=== PATIENT | male | born 1935 | race Caucasian/White ===

== ENCOUNTER → 2020-06-09 10:22 | Outpatient (CLI) | payer MEDICARE, OTHER, SELFPAY ==
--- NOTE | 2020-06-09 | DI.CT.S_ITS ---
PROCEDURE: CT ABDOMEN PELVIS WO/W CON INDICATIONS: GROSS HEMATURIA TECHNIQUE: Optional 5 mm thick noncontrast images acquired from the diaphragm to the symphysis pubis. After the administration of intravenous contrast, 5 mm thick images acquired from the diaphragm to the symphysis pubis after a 10-minute delay. 2 mm thick coronal and sagittal reformats were then performed of the kidneys and ureters. For radiation dose reduction, the following was used: automated exposure control, adjustment of mA and/or kV according to patient size. COMPARISON: Outside Film, CT, CT ABDOMEN WITH/WITHOUT CONTRAST, 05/26/2020, 12:15. Outside Film, US, US RENAL COMPLETE, 04/20/2019, 13:28. FINDINGS: Image quality: Excellent. Lung bases: Lung bases are clear. Heart size is normal. Urinary system: Both kidneys are normal in size, without hydronephrosis on pre-contrast images. There is a 6 x 12 mm calculus within a calyx of the left mid kidney adjacent to an upper pole renal cortical cyst. This has an internal radiodensity of 1016 Hounsfield units. No perinephric fat stranding, but there is a contour abnormality on noncontrast imaging at the right mid kidney projecting laterally, having overall dimensions of up to 5.3 cm AP, 7.0 cm transverse and approximately 7.2 cm craniocaudad. This extends from the middle 3rd of the renal cortex into the inferior 3rd, but on contrast-enhanced scanning is not associated with renal vein invasion. 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 Additionally, at the left kidney there is a lower 3rd renal cortical hypodensity measuring up to 1.2 cm, best seen centered on series 3, image 38. This could be a 2nd renal cortical neoplasm but is seen as a discrete entity only on the arterial phase of contrast enhancement There is normal bilateral renal enhancement. Renal calyces appear normal in morphology when filled with contrast. Opacified portions of both ureters demonstrate normal caliber. Bladder wall thickness is normal. No calcified bladder stones. Other solid organs: Liver is normal in size and enhancement. Gallbladder appears normal . Biliary system is non dilated. Pancreas enhances normally. Spleen is normal in size and enhancement. No adrenal nodules. Peritoneum and bowel: Bowel loops demonstrate normal wall thickness and caliber. No free fluid or air. Note is made of a proximal transverse duodenal diverticulum containing an air-fluid level but without associated enhancement measuring almost 3 cm in maximal axial dimension. Nodes and vessels: No retroperitoneal or mesenteric adenopathy by size criteria. Aorta and inferior vena cava are normal in size. Abdominal wall: No ventral hernias. Pelvis: No pathologic free pelvic fluid. No inguinal hernias or adenopathy. Bones: No suspicious bony lesions. No vertebral body compression fractures. IMPRESSION: Large malignant-appearing mass lesion involving the right kidney without evidence of adjacent adenopathy or direct invasion into the renal vein or IVC. The mass measures up to 5.3 x 7.0 x 7.2 cm, and is associated with a small focus of heterogeneous enhancement at the left renal cortex seen on arterial phase of contrast enhancement which conceivably could represent an additional focus of contralateral neoplasm. Follow-up attention to this area of the left kidney is recommended. Incidental finding of a duodenal diverticulum without internal or adjacent inflammation. No specific follow-up is recommended. 6 x 12 mm dense calcification within the nondistended collecting system of the left kidney. No urothelial malignancy suspected. No metastatic disease found. Dictated by: Adarsh Pastrana M.D. on 06/09/2020 at 13:12 Approved by: Adarsh Pastrana M.D. on 06/09/2020 at 13:26
== END ==
PROVIDERS: Referring Provider Urology; Visit Provider Urology
DX: R31.0 Gross hematuria (principal); N28.9 Disorder of kidney and ureter, unspecified; N20.0 Calculus of kidney; N28.1 Cyst of kidney, acquired; K57.10 Diverticulosis of small intestine without perforation or abscess without bleeding
CPT/HCPCS: 74178; Q9967

== ENCOUNTER 2024-09-03 04:10 | Emergency (ER) | payer MEDICARE, OTHER, SELFPAY ==
[2024-09-03] VITALS (20 sets, daily range): BP systolic 129–183; BP diastolic 68–92; PULSE 64–69; RESP 18–29; TEMP 36.2; O2SAT 93–96; BMI 29.8
--- NOTE | 2024-09-03 04:21 | EKG_ITS ---
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
--- NOTE | 2024-09-03 04:23 | ED_ITS ---
HPI - Chest Pain <Sharron Larry MD - Last Filed: 09/06/24 22:00> General Chief Complaint: Chest Pain Stated Complaint: Chest pain Time Seen by Provider: 09/03/24 04:10 History of Present Illness HPI narrative: 88-year-old male with history of metastatic renal cell carcinoma (not currently on chemo or radiation), right nephrectomy, pacemaker on warfarin therapy presents by EMS from home for left-sided chest pain. Patient states that he woke up in the middle of the night with a sharp pain in the left side of his chest that radiated downwards. Worse with movement. EMS administered aspirin and 3 nitroglycerin as well as 3 of morphine EN route with improvement in chest pain. Patient underwent PET-CT scan earlier this month at [facility] that showed progression of metastatic disease and small left pleural effusion. On arrival to the emergency department patient states that his pain is only present when he moves or touches his left lower chest wall. Related Data Previous Rx's Medication Instructions Recorded oxycodone 5 mg tablet 5 mg PO Q6H PRN pain #14 tabs 09/03/24 Allergies Allergy/AdvReac Type Severity Reaction Status Date / Time cephalexin Allergy Verified 09/03/24 04:28 Exam <Sharron Larry MD - Last Filed: 09/06/24 22:00> Initial Vital Signs Initial Vital Signs: Vital Signs Pulse Rate 67 09/03/24 04:20 Respiratory Rate 18 09/03/24 04:20 Blood Pressure 154/68 H 09/03/24 04:20 Pulse Oximetry 93 09/03/24 04:20 Oxygen Delivery Method Room Air 09/03/24 04:20 Const: Awake, alert, frail, appears chronically unwell Cardiac: regular rate, regular rhythm RESP: unlabored, decreased breath sounds left lower lung GI: Soft, left upper quadrant/left lower axillary pain to palpation, no rebound or guarding Skin: Warm, Dry, intact, no rashes Neuro: AO x3, CN II-XII grossly intact, moves all extremities <Sharron Oconnell DO - Last Filed: 09/03/24 10:40> Initial Vital Signs Initial Vital Signs: Vital Signs Pulse Rate 67 09/03/24 04:20 Respiratory Rate 18 09/03/24 04:20 Blood Pressure 154/68 H 09/03/24 04:20 Pulse Oximetry 93 09/03/24 04:20 Oxygen Delivery Method Room Air 09/03/24 04:20 Course <Sharron Larry MD - Last Filed: 09/06/24 22:00> Orders Ordered: Discontinued Medications Bacitracin (Bacitracin Oint 0.9 Gm Pckt) 1 applic TOP NOW ONE Stop: 09/03/24 09:10 Last Admin: 09/03/24 09:13 Dose: 1 applic Documented By: WARREN Vital Signs Vital signs: Vital Signs - 8 hr 09/03/24 04:20 09/03/24 04:27 09/03/24 04:40 Temperature 97.2 F L Pulse Rate 67 65 Respiratory Rate 18 19 Blood Pressure 154/68 H Pulse Oximetry 93 94 Oxygen Delivery Method Room Air 09/03/24 05:27 09/03/24 05:29 09/03/24 05:29 Temperature Pulse Rate 68 64 Respiratory Rate 21 Blood Pressure 183/90 H Pulse Oximetry 96 Oxygen Delivery Method 09/03/24 05:30 09/03/24 06:00 09/03/24 06:01 Temperature Pulse Rate 65 64 64 Respiratory Rate 29 H 24 19 Blood Pressure Pulse Oximetry 96 96 95 Oxygen Delivery Method 09/03/24 06:01 09/03/24 06:30 09/03/24 06:33 Temperature Pulse Rate 66 64 Respiratory Rate 27 H 23 Blood Pressure 149/79 H Pulse Oximetry 95 Oxygen Delivery Method 09/03/24 06:33 09/03/24 07:00 09/03/24 07:01 Temperature Pulse Rate 65 66 Respiratory Rate 22 24 Blood Pressure 179/92 H Pulse Oximetry 93 93 Oxygen Delivery Method 09/03/24 07:01 09/03/24 07:30 09/03/24 07:31 Temperature Pulse Rate 64 64 Respiratory Rate 18 21 Blood Pressure 150/72 H Pulse Oximetry 95 95 Oxygen Delivery Method Room Air 09/03/24 07:31 09/03/24 08:25 09/03/24 08:30 Temperature Pulse Rate 65 Respiratory Rate 21 Blood Pressure 149/82 H 147/73 H 157/77 H Pulse Oximetry 95 Oxygen Delivery Method 09/03/24 08:30 09/03/24 08:47 09/03/24 08:47 Temperature Pulse Rate 64 69 Respiratory Rate 21 Blood Pressure 129/79 Pulse Oximetry 95 Oxygen Delivery Method 09/03/24 09:05 09/03/24 09:25 09/03/24 09:26 Temperature Pulse Rate 69 68 Respiratory Rate Blood Pressure 138/75 Pulse Oximetry 96 94 Oxygen Delivery Method Room Air Room Air <Sharron Oconnell, - Last Filed: 09/03/24 10:40> Orders Ordered: Discontinued Medications Bacitracin (Bacitracin Oint 0.9 Gm Pckt) 1 applic TOP NOW ONE Stop: 09/03/24 09:10 Last Admin: 09/03/24 09:13 Dose: 1 applic Documented By: WARREN Vital Signs Vital signs: Vital Signs - 8 hr 09/03/24 04:20 09/03/24 04:27 09/03/24 04:40 Temperature 97.2 F L Pulse Rate 67 65 Respiratory Rate 18 19 Blood Pressure 154/68 H Pulse Oximetry 93 94 Oxygen Delivery Method Room Air 09/03/24 05:27 09/03/24 05:29 09/03/24 05:29 Temperature Pulse Rate 68 64 Respiratory Rate 21 Blood Pressure 183/90 H Pulse Oximetry 96 Oxygen Delivery Method 09/03/24 05:30 09/03/24 06:00 09/03/24 06:01 Temperature Pulse Rate 65 64 64 Respiratory Rate 29 H 24 19 Blood Pressure Pulse Oximetry 96 96 95 Oxygen Delivery Method 09/03/24 06:01 09/03/24 06:30 09/03/24 06:33 Temperature Pulse Rate 66 64 Respiratory Rate 27 H 23 Blood Pressure 149/79 H Pulse Oximetry 95 Oxygen Delivery Method 09/03/24 06:33 09/03/24 07:00 09/03/24 07:01 Temperature Pulse Rate 65 66 Respiratory Rate 22 24 Blood Pressure 179/92 H Pulse Oximetry 93 93 Oxygen Delivery Method 09/03/24 07:01 09/03/24 07:30 09/03/24 07:31 Temperature Pulse Rate 64 64 Respiratory Rate 18 21 Blood Pressure 150/72 H Pulse Oximetry 95 95 Oxygen Delivery Method Room Air 09/03/24 07:31 09/03/24 08:25 09/03/24 08:30 Temperature Pulse Rate 65 Respiratory Rate 21 Blood Pressure 149/82 H 147/73 H 157/77 H Pulse Oximetry 95 Oxygen Delivery Method 09/03/24 08:30 09/03/24 08:47 09/03/24 08:47 Temperature Pulse Rate 64 69 Respiratory Rate 21 Blood Pressure 129/79 Pulse Oximetry 95 Oxygen Delivery Method 09/03/24 09:05 09/03/24 09:25 09/03/24 09:26 Temperature Pulse Rate 69 68 Respiratory Rate Blood Pressure 138/75 Pulse Oximetry 96 94 Oxygen Delivery Method Room Air Room Air MDM - Chest Pain <Sharron Larry MD - Last Filed: 09/06/24 22:00> Differential Diagnosis Differential diagnosis: Likely fracture of rib, chest pain and other (metastatic disease) Lab Data 09/03/24 04:15 09/03/24 04:15 Labs: Lab Results 09/03/24 Range/Units 04:15 WBC 5.8 (4.5-11.0) X10^3/uL RBC 4.45 L (4.5-5.9) X10^6/uL Hgb 12.9 L (13.5-17.5) g/dL Hct 40.0 L (41-53) % MCV 89.9 (80-100) fL MCH 29.0 (26-34) PG MCHC 32.3 (30-36) % RDW 17.6 H (11.6-14.8) % Plt Count 141 L (150-400) X10^3/uL Neut % (Auto) 70.5 (50-75) % Lymph % (Auto) 14.1 L (25-40) % [place] % (Auto) 12.2 (3-14) % Eos % (Auto) 1.9 L (2-4) % Baso % (Auto) 1.3 (0-2) % Neut # (Auto) 4100 (5747-3052) /uL Lymph # (Auto) 800 L (1703-7603) /uL [place] # (Auto) 700 (0-900) /uL Eos # (Auto) 100 (0-450) /uL Baso # (Auto) 100 (0-100) /uL PT 25.0 H (9.4-12.5) SECONDS INR 2.3 H (0.9-1.3) Sodium 139 (137-145) mmol/L Potassium 4.0 (3.4-5.1) mmol/L Chloride 107 (98-107) mmol/L Carbon Dioxide 27 (22-32) mmol/L BUN 43 H (9-20) mg/dL Creatinine 2.64 H (0.66-1.25) mg/dL Estimated GFR 23 L (>60) mL/min BUN/Creatinine Ratio 16.3 (6-22) Glucose 136 H (80-110) mg/dL Calcium 8.7 (8.4-10.2) mg/dL Total Bilirubin 0.7 (0.2-1.3) mg/dL AST 39 (17-59) IU/L ALT 19 (<50) IU/L Alkaline Phosphatase 90 (38-126) U/L Total Creatine Kinase 95 (55-170) U/L Troponin I < 0.012 (0.01-0.034) ng/mL Total Protein 6.3 (6.3-8.2) g/dL Albumin 3.6 (3.5-5.0) g/dL Globulin 2.7 (1.7-4.1) g/dL Albumin/Globulin Ratio 1.3 (1.0-2.8) Imaging Data CT scan - chest: Radiologist's Impression: Preliminary read: Bilateral pulmonary nodules/metastases, moderate left pleural effusion a Ve[place] attenuation CT scan - abdomen/pelvis: Radiologist's Impression: Preliminary read: Right nephrectomy, nephrolithiasis unless without evidence of obstructive uropathy ECG Data Interpretation: Ventricular paced rhythm MDM Narrative Medical decision making narrative: Patient presenting for left-sided chest pain. On exam patient's pain is very reproducible, isolated to the left lower part of the chest wall and worsened with movement or palpation. With history of metastatic renal cell carcinoma there may be possible metastatic disease contributing to his symptoms. Labs, imaging to be obtained. Laboratory work shows WBC count 5.8, hemoglobin 12.9, platelet count 141, INR 2.3, sodium 139, potassium 4.0, creatinine 2.64, GFR 23, normal liver enzymes. Troponin undetectable. No previous priors in our system for comparison. CT shows left-sided pleural effusion of deferring at attenuation. CT abdomen shows no acute findings. Case discussed with patient's oncologist Dr. Moore, who requested a diagnostic tap of patient's pleural effusion if able, otherwise patient can follow with him in the clinic. Attempted ultrasound guided pleurocentesis, however only a small amount of blood was drawn in the tube. Attempt aborted and post-procedure CXR ordered for assessment. Plan to monitor for changes Care of patient signed to Dr. Oconnell at 0700. 09/03/2024 Dr. Oconnell: Patient signed out to myself by Dr. Larry. Patient seen and evaluated by myself labs were reviewed, CT imaging was reviewed as well as postprocedure chest x-ray with Laron. Waiting formal read for chest x-ray we will plan to monitor for several hours to evaluate for any postprocedure complications. On exam patient has good breath sounds bilaterally, reviewed patient's back he is tender on examination to the chest wall, there has no hematomas or bruising appreciated. No subcutaneous emphysema. Formal read for post chest x-ray shows no pneumothorax, persistent pulmonary nodules left lower lobe mild cardiomegaly, no passes venous congestion patient's rotated venous portal tip atrial caval junction dual-chamber pacemaker. Has what appears to be improvement of left pleural effusion. Discussed findings with patient including what appears to be metastatic changes to the bone, pleural effusion which are likely the source of his pain. Patient was already aware these from our discussion. He currently has pain, no shortness of breath. States he has a little bit lightheaded but is also very hungry. Did discuss options for pain management. He was following regularly with Oncology. 0856: Patient ambulated in the department to the bathroom and back without issue. He states feels a little bit dizzy but otherwise feels well. No increased shortness of breath. Formal report from [facility] is no pneumothorax on chest x-ray has not had any major changes to his vital signs and felt appropriate for discharge home with return precautions. Reviewed all of patient's findings. Discussed should follow up with his oncologist. Also as patient has relayed that we were unable to obtain fluid for studies. We will give prescription for pain medication he has had oxycodone in the past for hernia repair and states he tolerated well. <Sharron Oconnell, - Last Filed: 09/03/24 10:40> Lab Data Labs: Lab Results 09/03/24 Range/Units 04:15 WBC 5.8 (4.5-11.0) X10^3/uL RBC 4.45 L (4.5-5.9) X10^6/uL Hgb 12.9 L (13.5-17.5) g/dL Hct 40.0 L (41-53) % MCV 89.9 (80-100) fL MCH 29.0 (26-34) PG MCHC 32.3 (30-36) % RDW 17.6 H (11.6-14.8) % Plt Count 141 L (150-400) X10^3/uL Neut % (Auto) 70.5 (50-75) % Lymph % (Auto) 14.1 L (25-40) % [place] % (Auto) 12.2 (3-14) % Eos % (Auto) 1.9 L (2-4) % Baso % (Auto) 1.3 (0-2) % Neut # (Auto) 4100 (8756-6710) /uL Lymph # (Auto) 800 L (2828-4410) /uL [place] # (Auto) 700 (0-900) /uL Eos # (Auto) 100 (0-450) /uL Baso # (Auto) 100 (0-100) /uL PT 25.0 H (9.4-12.5) SECONDS INR 2.3 H (0.9-1.3) Sodium 139 (137-145) mmol/L Potassium 4.0 (3.4-5.1) mmol/L Chloride 107 (98-107) mmol/L Carbon Dioxide 27 (22-32) mmol/L BUN 43 H (9-20) mg/dL Creatinine 2.64 H (0.66-1.25) mg/dL Estimated GFR 23 L (>60) mL/min BUN/Creatinine Ratio 16.3 (6-22) Glucose 136 H (80-110) mg/dL Calcium 8.7 (8.4-10.2) mg/dL Total Bilirubin 0.7 (0.2-1.3) mg/dL AST 39 (17-59) IU/L ALT 19 (<50) IU/L Alkaline Phosphatase 90 (38-126) U/L Total Creatine Kinase 95 (55-170) U/L Troponin I < 0.012 (0.01-0.034) ng/mL Total Protein 6.3 (6.3-8.2) g/dL Albumin 3.6 (3.5-5.0) g/dL Globulin 2.7 (1.7-4.1) g/dL Albumin/Globulin Ratio 1.3 (1.0-2.8) MDM Narrative Medical decision making narrative: Patient presenting for left-sided chest pain. On exam patient's pain is very reproducible, isolated to the left lower part of the chest wall and worsened with movement or palpation. With history of metastatic renal cell carcinoma there may be possible metastatic disease contributing to his symptoms. Labs, imaging to be obtained. Laboratory work shows WBC count 5.8, hemoglobin 12.9, platelet count 141, INR 2.3, sodium 139, potassium 4.0, creatinine 2.64, GFR 23, normal liver enzymes. Troponin undetectable. No previous priors in our system for comparison. CT shows left-sided pleural effusion of deferring at attenuation. CT abdomen shows no acute findings. Case discussed with patient's oncologist Dr. Moore, who requested a diagnostic tap of patient's pleural effusion if able, otherwise patient can follow with him in the clinic. Attempted ultrasound guided pleurocentesis, however only a small amount of blood was drawn in the tube. Attempt aborted and post-procedure CXR ordered for assessment. Care of patient signed to Dr. Oconnell at 0700. 09/03/2024 Dr. Oconnell: Patient signed out to myself by Dr. Larry. Patient seen and evaluated by myself labs were reviewed, CT imaging was reviewed as well as postprocedure chest x-ray with Laron. Waiting formal read for chest x-ray we will plan to monitor for several hours to evaluate for any postprocedure complications. On exam patient has good breath sounds bilaterally, reviewed patient's back he is tender on examination to the chest wall, there has no hematomas or bruising appreciated. No subcutaneous emphysema. Formal read for post chest x-ray shows no pneumothorax, persistent pulmonary nodules left lower lobe mild cardiomegaly, no passes venous congestion patient's rotated venous portal tip atrial caval junction dual-chamber pacemaker. Has what appears to be improvement of left pleural effusion. Discussed findings with patient including what appears to be metastatic changes to the bone, pleural effusion which are likely the source of his pain. Patient was already aware these from our discussion. He currently has pain, no shortness of breath. States he has a little bit lightheaded but is also very hungry. Did discuss options for pain management. He was following regularly with Oncology. 0856: Patient ambulated in the department to the bathroom and back without issue. He states feels a little bit dizzy but otherwise feels well. No increased shortness of breath. Formal report from [facility] is no pneumothorax on chest x-ray has not had any major changes to his vital signs and felt appropriate for discharge home with return precautions. Reviewed all of patient's findings. Discussed should follow up with his oncologist. Also as patient has relayed that we were unable to obtain fluid for studies. We will give prescription for pain medication he has had oxycodone in the past for hernia repair and states he tolerated well. Discharge Plan Departure Patient Disposition: Home Clinical Impression: Chest pain, Pleural effusion on left, Cancer, metastatic to lung Activity Restrictions/Additional Instructions: Your imaging today did show a pleural effusion or some fluid around the lung as well as a small pericardial effusion and metastatic lesions to the lung and bone which is likely the source of your pain in the left side of your chest. You did have an attempted thoracentesis, your repeat chest x-ray shows no pneumothorax but please return if you have increasing shortness of breath or difficulty with breathing. A prescription for pain medication is included. You can take acetaminophen up to a 1000 mg every 6 hours for pain if in adequate you can take oxycodone 1-2 tablets with this every 6 hours. This medication can make you sleepy do not drive, perform hazardous activities or make any major decisions while taking it. This medication will make you constipated please take a stool softener such as Colace once to twice daily until stools are soft and regular. Prescription sent to [facility] in [place]. If you develop increased shortness of breath, increasing pain, lightheadedness or passing out, new swelling of your extremities, persistent vomiting, bruising or other new or concerning changes please return to the emergency department. Prescriptions: New oxycodone 5 mg tablet 5 mg PO Q6H PRN (Reason: pain) Qty: 14 0RF Stand Alone Forms: Patient Portal/API/Survey
[2024-09-03 04:28] LABS: Add Manual Diff / Slide Review NO; Basophils Absolute Auto 100 /uL (0-100); Basophils Percent Auto 1.3 % (0-2); Eosinophils Absolute Auto 100 /uL (0-450); Eosinophils Percent Auto 1.9 % (2-4); Hemoglobin 12.9 g/dL (13.5-17.5); Lymphocytes Absolute Auto 800 /uL (1100-4500); Lymphocytes Percent Auto 14.1 % (25-40); Mean Corpuscular HGB Conc 32.3 % (30-36); Mean Corpuscular Volume 89.9 fL (80-100); Monocytes Absolute Auto 700 /uL (0-900); Monocytes Percent Auto 12.2 % (3-14); Neutrophils Absolute Auto 4100 /uL (1500-7000); Neutrophils Percent Auto 70.5 % (50-75); Platelet Count 141 X10^3/uL (150-400); Red Blood Cell Count 4.45 X10^6/uL (4.5-5.9); Red Cell Distribution Width 17.6 % (11.6-14.8); White Blood Cell Count 5.8 X10^3/uL (4.5-11.0)
[2024-09-03 04:36] LABS: INR 2.3 (0.9-1.3)
[2024-09-03 04:39] LABS: Alanine Aminotransferase 19 IU/L (<50); Albumin 3.6 g/dL (3.5-5.0); Albumin Globulin Ratio 1.3 (1.0-2.8); Alkaline Phosphatase 90 U/L (38-126); Aspartate Aminotransferase 39 IU/L (17-59); BUN Creatinine Ratio 16.3 (6-22); Bilirubin Total 0.7 mg/dL (0.2-1.3); Blood Urea Nitrogen 43 mg/dL (9-20); Calcium 8.7 mg/dL (8.4-10.2); Carbon Dioxide 27 mmol/L (22-32); Chloride 107 mmol/L (98-107); Creatine Kinase 95 U/L (55-170); Estimated Glomerular Filt Rate 23 mL/min (>60); Globulin 2.7 g/dL (1.7-4.1); Glucose 136 mg/dL (80-110); HEMOLYSIS < 15 (0-50); Sodium 139 mmol/L (137-145); Total Protein 6.3 g/dL (6.3-8.2)
[2024-09-03 04:51] LABS: Troponin I < 0.012 ng/mL (0.01-0.034)
--- NOTE | 2024-09-03 04:54 | DI.CT.S_ITS ---
PROCEDURE: CT ABDOMEN PELVIS WO CON INDICATIONS: L ABD/FLANK PAIN, HX METASTATIC RCC TECHNIQUE: Axial sections were acquired from the lung bases to the pubic symphysis. Coronal and sagittal reformats were performed. For radiation dose reduction, the following was used: automated exposure control, adjustment of mA and/or kV according to patient size. COMPARISON: [place], [place], [place] PET CT FUSION SKULL 2 THIGH, 08/22/2024, 11:08. FINDINGS: Image quality: Diagnostic. Lower Chest: Growing bilateral solid pulmonary nodules. Increased small left pleural effusion, with mild internal complexity. URINARY: Right Kidney: Absent. Right Ureter: Absent Left Kidney: Moderate burden of small, nonobstructing nephrolithiasis. Largest measures 6 millimeters. No hydronephrosis. Left Ureter: No hydroureter. Bladder: Normal wall thickness. No stones. ABDOMEN: Liver: Stable hypoattenuating liver lesions period Gallbladder: Gallbladder sludge versus small stones. No wall thickening or pericholecystic edema to suggest acute cholecystitis. Biliary ducts: No biliary dilation. Pancreas: No ductal dilation. Spleen: Size is within normal limits. Adrenal Glands: No adrenal nodules. Stomach and Bowel: Normal colonic caliber, without significant wall thickening. Colonic diverticulosis without evidence of diverticulitis. Peritoneum: No abnormal intraperitoneal fluid. No free air. Ventral Wall: No hernia. Abdominal Nodes: No enlarged retroperitoneal or mesenteric lymph nodes. Vessels: Aorta and inferior vena cava are normal in size. PELVIS: Pelvic Organs: Unremarkable. Pelvic Nodes: Unremarkable. Miscellaneous: No inguinal hernias are seen. Bones: Stable osseous metastatic disease, notably the heterogeneous appearance of the left sacral ala. No pathologic fracture or spinal canal invasion. Degenerative disc disease of the lumbar spine. Severe spinal canal narrowing at L2-3, L3-4, L4-5. IMPRESSION: No obstructing stones or hydronephrosis. Right nephrectomy. Growing solid pulmonary nodules and small left pleural effusion, with heterogeneous attenuation favoring malignancy. Osseous metastatic disease without spinal cord invasion or pathologic fracture. Colonic diverticulosis without evidence of diverticulitis. Cholelithiasis without wall thickening or adjacent fat stranding to suggest acute cholecystitis. Degenerative disc disease of the lumbar spine. Multilevel severe spinal canal narrowing, similar to prior. Correlate with symptoms. Agree with preliminary report. Dictated by: Raghav Alas M.D. on 09/03/2024 at 8:36 Approved by: Raghav Alas M.D. on 09/03/2024 at 8:42
--- NOTE | 2024-09-03 05:00 | PC.NURSE ---
Pt to imaging via stretcher with tech
--- NOTE | 2024-09-03 05:11 | PC.NURSE ---
Daughter- Lois Aburto called ED. OK per pt for updates.
--- NOTE | 2024-09-03 05:14 | DI.CT.S_ITS ---
PROCEDURE: CT CHEST WO CON INDICATIONS: L SIDE CHEST PAIN, PLEURAL EFFUSION SEEN ON ABD CT TECHNIQUE: Noncontrast 5 mm thick sections acquired from the pulmonary apices to the posterior costophrenic angles. 1 mm lung window, 5 mm thick coronal and sagittal and 7 mm axial MIP reformats were then acquired. For radiation dose reduction, the following was used: automated exposure control, adjustment of mA and/or kV according to patient size. COMPARISON: [place], [place], [place] PET CT FUSION SKULL 2 THIGH, 08/22/2024, 11:08. FINDINGS: Image quality: Diagnostic. Lower Neck: No enlarged lymph nodes. Thyroid: Hypoattenuating. Axillae: No enlarged lymph nodes. Chest Wall: Left chest wall generator with cardiac leads. Right chest wall port tip terminates in the low SVC. Bones: Known osseous metastases are difficult to appreciate. Lungs and Pleura: Growing small left pleural effusion. The left-sided pleural effusion has heterogeneous attenuation. Trace right simple pleural effusion. Growing bilateral solid pulmonary nodules. Examples include: -0.9 centimeter right lower lobe nodule, previously 0.7 centimeter (series 3, image 198). -2.4 centimeter left lower lobe nodule, previously 1.5 centimeter (series 3, image 214). Heart: Heart size is normal. No pericardial effusion. Thoracic Vessels: The aorta and pulmonary arteries demonstrate normal size. Mediastinum and [place]: No enlarged lymph nodes. Esophagus: No wall thickening. No hiatal hernia. Upper Abdomen: Visualized upper abdomen solid organs and bowel loops appear normal. IMPRESSION: No acute cardiopulmonary process. Growing solid metastases. Growing left-sided pleural effusion, with heterogeneous attenuation. Findings favor malignancy. Trace simple right pleural effusion. Known osseous metastatic disease is difficult to appreciate. No pathologic fracture. Agree with preliminary report. Dictated by: Raghav Alas M.D. on 09/03/2024 at 8:43 Approved by: Raghav Alas M.D. on 09/03/2024 at 8:47
--- NOTE | 2024-09-03 06:49 | DI.RAD.S_ITS ---
PROCEDURE: XR CHEST 1V INDICATIONS: s/p thoracentesis attempt TECHNIQUE: One view of the chest was acquired. COMPARISON: None. FINDINGS: Surgical changes and devices: Left chest wall generator with cardiac leads. Right IJ central port tip terminates in the low SVC. Lungs and pleura: Bilateral pulmonary metastases. Small left pleural effusion. Mediastinum: Mediastinal contours appear normal. Heart size is normal. Bones and chest wall: No suspicious bony lesions. Overlying soft tissues appear unremarkable. IMPRESSION: No pneumothorax. Dictated by: Raghav Alas M.D. on 09/03/2024 at 8:48 Approved by: Raghav Alas M.D. on 09/03/2024 at 8:49
--- NOTE | 2024-09-03 06:53 | PC.NURSE ---
assisted Dr Larry with thoracentesis on pt, pt tolerated procedure well no specimen obtained at this time post procedure cxr ordered
[2024-09-03] MEDS: BACITRACIN OINT 0.9 GM PCKT 1 APPLIC TOP (09:13)
== END 2024-09-03 09:30 | disposition home or self-care (01) ==
PROVIDERS: Emergency Medicine; Emergency Provider Emergency Medicine
DX: R07.9 Chest pain, unspecified (principal); J90 Pleural effusion, not elsewhere classified; I45.10 Unspecified right bundle-branch block; Z95.0 Presence of cardiac pacemaker; Z79.01 Long term (current) use of anticoagulants
CPT/HCPCS: 71045; 71250; 74176; 80053; 82550; 84484; 85025; 85610; 93005; 99282; 99284

== ENCOUNTER 2024-10-12 06:59 | Emergency (ER) | payer MEDICARE, OTHER, SELFPAY ==
[2024-10-12] VITALS (14 sets, daily range): BP systolic 115–148; BP diastolic 66–80; PULSE 66–79; RESP 16–20; TEMP 36.8; O2SAT 88–98; BMI 30.2
--- NOTE | 2024-10-12 07:09 | DI.RAD.S_ITS ---
PROCEDURE: XR HIP W PEL IF DONE RT 2V INDICATIONS: fall TECHNIQUE: AP pelvis with lateral view(s) of the right hip(s). COMPARISON: None. FINDINGS: Bones: No acute fractures or dislocations. Pelvic ring appears intact. Bilateral hip joint osteoarthritic changes are seen. No evidence of avascular necrosis of femoral head. No suspicious bony lesions. Soft tissues: The visualized bowel gas pattern is normal. No suspicious soft tissue calcifications. IMPRESSION: No acute right hip fracture or dislocation. Bilateral hip joint osteoarthritis. No evidence of avascular necrosis. Dictated by: Maldonado Sánchez M.D. on 10/12/2024 at 8:21 Approved by: Maldonado Sánchez M.D. on 10/12/2024 at 8:22
--- NOTE | 2024-10-12 07:29 | ED_ITS ---
HPI - General Adult General Chief complaint: Trauma Stated complaint: fall-tail bone pain Time Seen by Provider: 10/12/24 07:04 History of Present Illness HPI narrative: 88-year-old gentleman who lives at home with his , has a caregiver, grandson is currently visiting but leaving today with a history of metastatic renal cell cancer, right nephrectomy, pacemaker has been anticoagulated on warfarin until about a week ago fell at home in the middle of the night landing on his buttocks complaining of tailbone pain brought in by medics. Difficulty sitting and standing significant right hip pain. He reports that over the last 2 weeks he has had multiple right-sided thoracentesis with a total of 6 L of pleural fluid removed. This is part of the reason that his warfarin has been discontinued and he apparently has a standing order at [facility] to have a repeat thoracentesis if he is increasingly dyspneic. It does not sound like there has been any discussion regarding more definitive treatment such as an indwelling pleural catheter(IPC) or pleurodesis. He has been on oral chemotherapy for the last 3 years with relative stability of his cancer. He states that his fall last night was purely mechanical with no associated palpitations, syncope or pain. He very clearly states he did not hit his head Related Data Home Medications Medication Instructions Recorded Confirmed albuterol sulfate 90 mcg/actuation 2 puff inhalation 4XD 10/12/24 10/12/24 aerosol inhaler amiodarone 200 mg tablet 200 mg PO DAILY 10/12/24 10/12/24 amlodipine 10 mg tablet 10 mg PO DAILY 10/12/24 10/12/24 buspirone 5 mg tablet 5 mg PO BID PRN anxiety 10/12/24 10/12/24 everolimus (antineoplastic) 2.5 mg 2.5 mg PO DAILY 10/12/24 10/12/24 tablet finasteride 5 mg tablet 5 mg PO DAILY 10/12/24 10/12/24 lenvatinib 8 mg/day (4 mg x 2) 8 mg PO DAILY 10/12/24 10/12/24 capsule (Lenvima) levothyroxine 125 mcg tablet 125 mcg PO DAILY 10/12/24 10/12/24 ondansetron HCl 8 mg tablet 8 mg PO 3XD 10/12/24 10/12/24 prochlorperazine maleate 10 mg 10 mg PO 3XD 10/12/24 10/12/24 tablet tamsulosin 0.4 mg capsule 0.4 mg PO BID 10/12/24 10/12/24 warfarin 5 mg tablet 5 mg PO DAILY 10/12/24 10/12/24 Allergies Allergy/AdvReac Type Severity Reaction Status Date / Time cephalexin Allergy Verified 09/03/24 04:28 Review of Systems Review of Systems Narrative: Pertinent positive and negative findings as per HPI Patient History Medical History (Updated 10/12/24 @ 11:07 by Annamarie Grigsby MD) Hypothyroidism (acquired) A-fib Renal cell cancer Exam Initial Vital Signs Initial Vital Signs: Vital Signs Pulse Rate 77 10/12/24 07:03 Pulse Oximetry 93 10/12/24 07:03 Oxygen Delivery Method Room Air 10/12/24 07:03 General: Older-appearing gentleman in moderate distress. Able to give a complete and coherent history HEENT: Moist mucous membranes, normal sclera with reactive pupils, Respiratory: Lungs with diminished breath sounds on the right no significant rhonchi. Cardiac: Irregular, no obvious murmurs Abdomen: Soft, nontender, no flank pain Spine: No tenderness along the thoracic or lumbar spine. No tenderness with AP manipulation of the pelvis. He complains of tailbone pain but no tenderness with direct palpation of the sacrum. Discomfort with external rotation of the right hip. Skin: Warm and dry, Neurologic: Grossly neurologically intact, is able to move all extremities and has intact distal pulses Extremities: Right leg is slightly internally rotated and foreshortened Psych: Cooperative, appropriate insight and affect Course Orders Ordered: ED Orders 10/12/24 07:09 XR hip w pel if done RT 2V Stat 10/12/24 07:55 XR chest 1V Stat 10/12/24 08:10 Complete Blood Count AUTO DIFF Stat Comprehensive Metabolic Panel Stat NT-proBNP (BNP-Adult 18+) Stat Prothrombin Time INR Stat Troponin I Stat 10/12/24 08:31 Ct Hip right without con Stat 10/12/24 09:17 Consult to Physical Therapy Evaluate & Treat 10/12/24 09:18 Consult to Physical Therapy Evaluate & Treat 10/12/24 10:10 Urinalysis and Microscopic Stat Hydromorphone HCl (Hydromorphone 0.5 Mg Inj) 0.5 mg IV Q15MIN PRN PRN Reason: Pain, Last Admin: 10/12/24 08:15 Dose: 0.5 mg Documented By: JAYNE Discontinued Medications Lidocaine HCl (Lidocaine 2% (Glydo) 6 Ml Gel) 6 ml TOP NOW ONE Stop: 10/12/24 09:12 Vital Signs Vital signs: Vital Signs - 8 hr 10/12/24 07:03 10/12/24 07:20 10/12/24 07:20 Temperature 98.3 F Pulse Rate 77 73 72 Respiratory Rate 18 18 Blood Pressure 141/70 H Pulse Oximetry 93 92 94 Oxygen Delivery Method Room Air Room Air Room Air Oxygen Flow Rate 10/12/24 07:20 10/12/24 08:00 10/12/24 08:10 Temperature Pulse Rate 66 67 Respiratory Rate 18 Blood Pressure 140/71 Pulse Oximetry 88 L 89 L Oxygen Delivery Method Room Air Room Air Oxygen Flow Rate 10/12/24 08:10 10/12/24 08:15 10/12/24 08:36 Temperature Pulse Rate 68 69 Respiratory Rate 18 16 Blood Pressure 115/70 Pulse Oximetry 95 98 Oxygen Delivery Method Nasal Cannula Nasal Cannula Oxygen Flow Rate 3 3 Medical Decision Making Lab Data 10/12/24 08:10 10/12/24 08:10 Labs: Lab Results 10/12/24 Range/Units 08:10 WBC 4.7 (4.5-11.0) X10^3/uL RBC 3.53 L (4.5-5.9) X10^6/uL Hgb 9.2 L (13.5-17.5) g/dL Hct 29.5 L (41-53) % MCV 83.5 (80-100) fL MCH 26.0 (26-34) PG MCHC 31.2 (30-36) % RDW 18.8 H (11.6-14.8) % Plt Count 154 (150-400) X10^3/uL Neut % (Auto) 74.0 (50-75) % Lymph % (Auto) 9.6 L (25-40) % Valley % (Auto) 12.7 (3-14) % Eos % (Auto) 2.4 (2-4) % Baso % (Auto) 1.3 (0-2) % Neut # (Auto) 3500 (0881-8646) /uL Lymph # (Auto) 500 L (8595-3178) /uL Valley # (Auto) 600 (0-900) /uL Eos # (Auto) 100 (0-450) /uL Baso # (Auto) 100 (0-100) /uL PT 18.8 H (9.4-12.5) SECONDS INR 1.7 H (0.9-1.3) Sodium 137 (137-145) mmol/L Potassium 3.6 (3.4-5.1) mmol/L Chloride 105 (98-107) mmol/L Carbon Dioxide 28 (22-32) mmol/L BUN 33 H (9-20) mg/dL Creatinine 2.17 H (0.66-1.25) mg/dL Estimated GFR 29 L (>60) mL/min BUN/Creatinine Ratio 15.2 (6-22) Glucose 119 H (80-110) mg/dL Calcium 8.1 L (8.4-10.2) mg/dL Total Bilirubin 0.4 (0.2-1.3) mg/dL AST 163 H (17-59) IU/L ALT 24 (<50) IU/L Alkaline Phosphatase 91 (38-126) U/L Troponin I < 0.012 (0.01-0.034) ng/mL NT-Pro-B Natriuret Pep 1110 H (<450) pg/mL Total Protein 6.0 L (6.3-8.2) g/dL Albumin 3.0 L (3.5-5.0) g/dL Globulin 3.0 (1.7-4.1) g/dL Albumin/Globulin Ratio 1.0 (1.0-2.8) Point of Care Testing Glucose POC 165 Point of care testing: Point of Care Testing Glucose POC 165 MDM Narrative Medical decision making narrative: CC: Fall with stated coccyx pain Complicating co-morbidities: Renal cell cancer, metastatic, recurrent right pleural effusion, atrial fibrillation on amiodarone not currently anticoagulated with warfarin held over the last week due to the recurrent pleural effusion and recurrent thoracentesis Data collected from: patient Social determinants of health that may influence the patients condition: Lives part-time on [facility] and part-time in [place] Medical records reviewed: MAR from [facility] is reviewed. Most recent oncology notes have been requested Differential considered: Hip fracture, pelvic fracture, pathologic fractures, tailbone fracture, contusion, lumbar compression fractures Exam documented above, pertinent findings include: Extremely alert and able to relate medical history, rolling spasms of pain, tenderness with external rotation of the hip, no tenderness over lower lumbar spine or pelvis Lab Test results independently reviewed as above. Pertinent findings: CBC: No leukocytosis, drop in H&H from September 03 from 12.9-9.2 Chemistries: Improved creatinine from 2.6-2.17, increased to AST at 163 Troponin is undetected BNP is minimally elevated at 1110 Independently reviewed EKG: Imaging studies independently reviewed: X-ray of the pelvis and hip shows no obvious abnormalities but given his pain I am concerned that there was an occult fracture CT scan of the right hip and pelvis does not show sacral, pelvic or hip fracture Consultations: Physical therapy evaluation in the emergency department. Patient does have a walker at home. He notes he has had more falls recently. He is able to stand walk pivot with his walker. He is at his baseline increasingly unstable. Treatments: Bladder scan shows over 600 cc in his bladder, Cordoba catheter is placed. Discussion: 88-year-old gentleman with renal cell cancer recurrent pleural effusions care coordinated on [facility] Mechanical fall with sacral pain. X-rays and CT scans do not show new fractures. We will have Physical therapy evaluate as he is having difficulty even walking. Patient states that he does have oxycodone at home but does not like using it because it makes him feel odd and causes constipation. With his renal disease nonsteroidals are not going to be an appropriate pain control option for him. He very much would like to go home and we will be discharged. We will have him try tramadol as an alternative to his oxycodone to see if the side effects are better tolerated and it helps with his pain. Acute urinary retention. Suspect this is secondary to pain in the baseline setting of BPH with LUTS he currently is on 0.8 mg of tamsulosin. He has never had a Cordoba catheter required previously. He does have a urologist and Dr. Carmen molina. We will ask him to follow up with him in 1-2 weeks to discuss his Cordoba catheter and whether it can be removed. There was no indication for hospitalization at this time, he is safe for discharge Discharge Plan Departure Patient Disposition: Home Clinical Impression: Gait instability, Acute on chronic urinary retention Contusion of hip, right Qualifiers: Encounter type: initial encounter Qualified Code(s): S70.01XA - Contusion of right hip, initial encounter Fall Qualifiers: Encounter type: initial encounter Qualified Code(s): W19.XXXA - Unspecified fall, initial encounter Instructions: How to Care for Your Cordoba Catheter -- Male, DI for Contusion, DI for Urinary Retention in Men Activity Restrictions/Additional Instructions: Thank you for coming in today. I am sorry that you are suffering with all of your recent new diagnoses and the increased weakness and falling. Today, I did not find any fractures in your pelvis, hip, tailbone or lower spine. You clearly hit hard and are going to have pain. You were seen by our physical therapist and you with a walker you were able to move around. We talked about pain control. You can use Tylenol as needed. You have oxycodone at home but find that it causes severe constipation. I have given you a dose of tramadol in the emergency department. This is a ?cloth grader? narcotic. If you find this helpful a prescription is available for you at [facility] The remainder of your workup today does not show new findings, there was no obvious infection, the fluid has not significantly reaccumulated around your lung. You were unable to pee and we found almost 700 cc of urine in your bladder. A Cordoba catheter is placed. Significant pain can sometimes cause acute urinary retention when your prostate is already enlarged. Please continue the 0.8 mg of tamsulosin. You will need to schedule an appointment with Dr. Morales, you are urologist in 1-2 weeks to discuss the Cordoba catheter and whether it should be removed or remain in place. If you find that you are getting worse or develop any new symptoms, please feel free to return to the emergency department for further evaluation. Prescriptions: No Action albuterol sulfate 90 mcg/actuation HFA aerosol inhaler 2 puff INHALATION 4XD buspirone 5 mg tablet 5 mg PO BID PRN (Reason: anxiety) amiodarone 200 mg tablet 200 mg PO DAILY ondansetron HCl 8 mg tablet 8 mg PO 3XD prochlorperazine maleate 10 mg tablet 10 mg PO 3XD tamsulosin 0.4 mg capsule 0.4 mg PO BID amlodipine 10 mg tablet 10 mg PO DAILY levothyroxine 125 mcg tablet 125 mcg PO DAILY warfarin 5 mg Tablet 5 mg PO DAILY Patient Comments: off med since 10/05/24; not restarting right away till upcoming procedure is done finasteride 5 mg tablet 5 mg PO DAILY everolimus (antineoplastic) 2.5 mg tablet 2.5 mg PO DAILY Lenvima 8 mg/day (4 mg x 2) capsule 8 mg PO DAILY Stand Alone Forms: Patient Portal/API/Survey
--- NOTE | 2024-10-12 07:55 | DI.RAD.S_ITS ---
PROCEDURE: XR CHEST 1V INDICATIONS: pre op TECHNIQUE: One view of the chest was acquired. COMPARISON: [facility], CR, XR CHEST 1V, 09/03/2024, 6:46. FINDINGS: Surgical changes and devices: Left chest wall pacemaker leads are in the region of right atrium and right ventricle. Right chest wall Port-A-Cath tip is in SVC.. Lungs and pleura: There is suggestion of trace bilateral pleural effusion. Ill-defined airspace opacities are seen in left mid to lower lung field and at right lung base. No pneumothorax. Mediastinum: Mediastinal contours appear normal. Heart size is mildly enlarged. Bones and chest wall: No suspicious bony lesions. Overlying soft tissues appear unremarkable. IMPRESSION: 1. Trace bilateral pleural effusion . Scattered left upper and lower lobe small infiltrate/atelectasis and right basilar infiltrate/atelectasis. No pneumothorax. Dictated by: Maldonado Sánchez M.D. on 10/12/2024 at 8:44 Approved by: Maldonado Sánchez M.D. on 10/12/2024 at 8:45
[2024-10-12] MEDS: HYDROMORPHONE 0.5 MG INJ IV (08:15)
[2024-10-12 08:28] LABS: INR 1.7 (0.9-1.3); Prothrombin Time 18.8 SECONDS (9.4-12.5)
--- NOTE | 2024-10-12 08:31 | DI.CT.S_ITS ---
PROCEDURE: CT HIP RIGHT WITHOUT CON INDICATIONS: fall, right hip and tailbone pain TECHNIQUE: Noncontrast 3 mm axial sections acquired through the bony pelvis. Additional 3 mm axial sections acquired through the symptomatic hip joint, with coronal and sagittal reformats. COMPARISON: [facility], CR, XR HIP W PEL IF DONE RT 2V, 10/12/2024, 7:18. FINDINGS: Image quality: Excellent. Bones: Pelvic ring is intact. No acute pelvic or hip fracture. Symmetric appearing moderate bilateral hip joint osteoarthritic changes are seen with joint space narrowing, subchondral sclerosis and marginal osteophyte formation. No evidence of avascular necrosis of femoral head. The visualized portion of sacrum and coccyx shows no acute fracture or dislocation. No suspicious bony lesions. Soft tissues: There is no pelvic free fluid or free air. No abnormal bowel wall thickening. Bladder wall thickness is normal. Coarse calcifications are noted within mildly enlarged prostate gland. No significant hip joint effusion or calcified intra-articular loose bodies. No soft tissue hematoma or drainable fluid collection. No abnormal soft tissue calcifications. IMPRESSION: 1. No acute pelvic or hip fracture. No hip dislocation. Moderate bilateral hip joint osteoarthritis. No evidence of avascular necrosis of femoral head. 2. No gross acute sacral or coccygeal fracture. No suspicious bony lesions. 3. No gross pelvic soft tissue abnormalities. Dictated by: Maldnoado Sánchez M.D. on 10/12/2024 at 8:45 Approved by: Maldonado Sánchez M.D. on 10/12/2024 at 8:51
[2024-10-12 08:37] LABS: Add Manual Diff / Slide Review NO; Basophils Absolute Auto 100 /uL (0-100); Basophils Percent Auto 1.3 % (0-2); Eosinophils Absolute Auto 100 /uL (0-450); Eosinophils Percent Auto 2.4 % (2-4); Hematocrit 29.5 % (41-53); Hemoglobin 9.2 g/dL (13.5-17.5); Lymphocytes Absolute Auto 500 /uL (1100-4500); Lymphocytes Percent Auto 9.6 % (25-40); Mean Corpuscular HGB Conc 31.2 % (30-36); Mean Corpuscular Volume 83.5 fL (80-100); Monocytes Absolute Auto 600 /uL (0-900); Monocytes Percent Auto 12.7 % (3-14); Neutrophils Absolute Auto 3500 /uL (1500-7000); Platelet Count 154 X10^3/uL (150-400); Red Blood Cell Count 3.53 X10^6/uL (4.5-5.9); Red Cell Distribution Width 18.8 % (11.6-14.8); White Blood Cell Count 4.7 X10^3/uL (4.5-11.0)
[2024-10-12 08:41] LABS: Alanine Aminotransferase 24 IU/L (<50); Alkaline Phosphatase 91 U/L (38-126); Aspartate Aminotransferase 163 IU/L (17-59); BUN Creatinine Ratio 15.2 (6-22); Bilirubin Total 0.4 mg/dL (0.2-1.3); Blood Urea Nitrogen 33 mg/dL (9-20); Calcium 8.1 mg/dL (8.4-10.2); Carbon Dioxide 28 mmol/L (22-32); Chloride 105 mmol/L (98-107); Estimated Glomerular Filt Rate 29 mL/min (>60); Glucose 119 mg/dL (80-110); HEMOLYSIS 30 (0-50); Potassium 3.6 mmol/L (3.4-5.1); Sodium 137 mmol/L (137-145)
[2024-10-12 08:53] LABS: NT-proBNP (BNP-Adult 18+) 1110 pg/mL (<450); Troponin I < 0.012 ng/mL (0.01-0.034)
[2024-10-12] MEDS: LIDOCAINE 2% (GLYDO) 6 ML GEL TOP (10:20)
--- NOTE | 2024-10-12 10:34 | PC.NURSE ---
[address] myles catheter, after use of Glydo lubricant with both 16fr regular myles tip from kit and 18 fr coude tip - unable to place. Patient has foreskin that does not fully retract to show tip of penis/urethra. 0935 PT at bedside to complete PT eval, patient evaluated by PT with RN walking beside for portable oxygen use, patient did require oxygen for ambulation at 4LPM NC to maintain oxygen saturation above 90% Without oxygen and exertion breaks oxygen saturation would dip to 88% then improve with a short standing rest break as long as O2 flow remained at 4LPM NC. 1010 Pl[address] Myles Catheter with assistance of additional RN for stabilization of Penis and instructions for patient to blow out slow deep breaths (blowing out candles) and wiggle toes to relax pelvic floor when inserting past prostate, able to place catheter without any trauma or bleeding and Catheter immediately patent draining clear yellow urine. Sample sent to lab. 1015 Patient oxygen titrated down to 2LPM (home rate) and maintaining oxygen saturation well. MD at bedside.
[2024-10-12 10:37] LABS: Appearance Urine UA CLEAR; Bilirubin Urine UA NEGATIVE (NEGATIVE); Color Urine UA YELLOW; Glucose Urine UA NEGATIVE (Negative); Ketones Urine UA NEGATIVE (NEGATIVE); Leukocyte Esterase Urine UA NEGATIVE (NEGATIVE); Nitrite Urine UA NEGATIVE (Negative); Occult Blood Urine UA NEGATIVE (Negative); Protein Urine UA 1+ (Negative); Specific Gravity Urine UA 1.015 (1.000-1.035); pH Urine UA 6.5 (4.5-8.0)
[2024-10-12 10:48] LABS: Bacteria Urine Occasional (0-1); Culture Indicated Urine Cult Not Indicated; RBC Urine 0-1/HPF (0-5/HPF); Squamous Epithelial Cell Urine 0-1 /HPF (0-5/HPF); Urine Volume 10mL (spun); WBC Urine 0-1/HPF (0-5/HPF)
--- NOTE | 2024-10-12 10:50 | PT.IIE ---
Medical History (Last Updated 10/12/24 @ 08:03 by Annamarie Grigsby MD) A-fib Hypothyroidism (acquired) Renal cell cancer Physical Therapy Inpatient Evaluation/Re-Eval M1 PT/OT-IP Prior Functional Status Start: 10/12/24 10:11 Freq: Status: Active Protocol: Document 10/12/24 10:12 AMB (Rec: 10/12/24 10:50 AMB [id number]) Medical Review Prior Functional Status Medical History Reviewed Yes Communication Effective verbal communication Mobility and Gait Has a 4WW and a FWW Activities of Daily Living and IADL's No longer drives Prior Functional Level (Other details) Pt reports last 6 weeks have been especially difficult. Has had 2 falls in the last 6 months. Has been undergoing chemo for 3 years and that has given him neuropathy which makes it hard to walk. On 2L O2 at home. Social History Household Members spouse Living Arrangements House Number of Stairs To Enter/Railing? 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 Patient reports caregivers could help him a little, but not all are able to provide physical support and certainly none are able to get him off the floor if he falls. In order to get into the house he needs to walk over 50' of stone pavers (uneven) and then up 6 stairs with a railing. M2 PT-IP Current Condition Start: 10/12/24 10:11 Freq: Status: Active Protocol: Document 10/12/24 10:12 AMB (Rec: 10/12/24 10:50 AMB [id number]) Physical Therapy Current Condition Current Condition Evaluation Date 10/12/24 Treatment Diagnosis coccyx pain s/p fall Onset Date 10/12/24 M3 PT-IP Subjective Start: 10/12/24 10:11 Freq: Status: Active Protocol: Document 10/12/24 10:12 AMB (Rec: 10/12/24 10:50 AMB [id number]) Subjective Physical Therapy Visit Type Type Initial Evaluation Visit Start Time 09:45 Visit Stop Time 10:15 Physical Therapy Visit Comments Patient Comments Patient reports he is willing to get up, rates coccyx pain as 3/10 in supine Therapy Pain Assessment Pain When Pain Assessed During Mobility Pain Present Pain Present Pain Reported Location tailbone/hip/pelvis Intensity 5 Scale Used Numeric (0 - 10) Pain Behaviors Guarding Pain Management Techniques Timing of Activity with Medications M4 PT-IP Mobility and Gait Start: 10/12/24 10:11 Freq: Status: Active Protocol: Document 10/12/24 10:12 AMB (Rec: 10/12/24 10:50 AMB [id number]) PT-Bed Mobility Assessment Rolling Type of Rolling Log Rolling,Roll to Left Level of Assist Contact Guard Assistance Supine to Sit Supine to Sit Contact Guard Assistance,1 Person Assistance Sit to Supine Sit to Supine Minimal Assistance,1 Person Assistance PT-Transfer Assessment Sit to and From Stand Sit to and from Stand Contact Guard Assistance,1 Person Assistance,Use of Upper Extremities Equipment Transfer Assistive Device Front Wheeled Walker Transfers Transfer Destination Bed Transfer Technique Stand Step Pivot Transfer Ability Level of Assist Standby Assistance Comments Mobility Comments Kyree was lying supine in bed and able to roll to sidelying and push into sitting without an increase in pain and with good safety awareness. Did offer CGA due to ER bed. On 2L O2, SpO2 at 90 at rest. Gait Assessment Gait Gait Assistance Required: Contact Guard Assist,1 Person Assist Distance (Feet) 100 Assistive Devices Assistive Device Gait Belt,Front Wheeled Walker Gait Deviations General Gait Pattern Decreased Stride Length,Flexed Trunk,Wide Based Gait Factors Limiting Gait Function Factors Limiting Gait Function Decreased Activity Tolerance, Decreased Sensation,Decreased Strength,Pain,Poor Balance Comments Gait Comments Kyree stood at the FWW and ambulated with CGA with 2L of O2 throughout. 4 rest breaks to ambulate 100', SpO2 did drop to 88 at the lowest, but on most occasions was 90-91. Pt does report history of vertigo, but was able to stop and take a standing rest if that became a problem. M5 PT-IP Objective Assessments Start: 10/12/24 10:11 Freq: Status: Active Protocol: Document 10/12/24 10:12 AMB (Rec: 10/12/24 10:50 AMB [id number]) Strength Lower Extremity Strength Assessment Bilaterally Impaired Comments Strength Comments Pt able to move LEs against gravity but subjectively feels weak, especially in the hips s/p fall Sensation Assessment Sensation Sensation Description Numbness Comments Sensation Comments bilateral chemotherapy related neuropathy M6 PT-IP Treatment Start: 10/12/24 10:11 Freq: Status: Active Protocol: Document 10/12/24 10:12 AMB (Rec: 10/12/24 10:50 AMB [id number]) Physical Therapy Treatment Education Education Provided Safety M7 PT-IP Assessment and Plan Start: 10/12/24 10:11 Freq: Status: Active Protocol: Document 10/12/24 10:12 AMB (Rec: 10/12/24 10:50 AMB [id number]) PT Summary Assessment and Plan Potential Rehabilitation Potential Fair Status of Condition at Evaluation Evolving Summary Impairments Pain,Strength,Balance,Bed Mobility,Transfers,Gait, Activity Tolerance Assessment Summary Kyree comes to the ED after a fall. X-rays and CT were negative for fracture. His pain levels are coming down, reports 9/10 when first got to ED, 3/10 when PT started, and 5/10 after walking. Kyree's baseline mobility is poor. He has had two falls in the last 6 months. His neuropathy , dizziness, and respiratory function limit his ability to be safe in his home at baseline. While he is certainly is a fall risk, he is close to his mobility baseline. He has a FWW at home and was instructed to continue to use this. He will need assistance to enter his home given the uneven terrain and the stairs, but he feels he will be able to have friends and his 's caregivers help him with this. Goals Bed Mobility Goal Independent Transfer Goal Independent Gait Goal Standby Assistance Days to Meet Goals 1 Frequency of Treatment Frequency Of Treatment Discharge Treatment Plan Physical Therapy Treatment Plan Bed Mobility Training,Gait Training,Balance Retraining Recommendations To Nursing Amount of Assist Needed 1 Person Assist Discharge Recommendations PT Discharge Recommendations Home with Assistance Transportation Needs at Discharge Wheelchair/Cabulance
[2024-10-12] MEDS: TRAMADOL 50 MG TABLET PO (11:08)
--- NOTE | 2024-10-12 16:53 | PC.NURSE ---
spoke with Dr. Grigsby. insurance doesn't cover med. pt is ok to take his narcotic at home. they will also check with good rx
== END 2024-10-12 11:41 | disposition home or self-care (01) ==
PROVIDERS: Emergency Provider Emergency Medicine
DX: S70.01XA Contusion of right hip, initial encounter (principal); R26.89 Other abnormalities of gait and mobility; R33.9 Retention of urine, unspecified; C64.9 Malignant neoplasm of unspecified kidney, except renal pelvis; W18.30XA Fall on same level, unspecified, initial encounter; Z95.0 Presence of cardiac pacemaker
CPT/HCPCS: 36415; 51798; 71045; 73502; 73700; 80053; 81001; 83880; 84484; 85025; 85610; 96374; 97162; 99284; 99285; J1171